=== PATIENT | male | born 1975 | race Caucasian/White ===

== ENCOUNTER 2020-02-19 15:35 | Inpatient (IN) | payer OTHER ==
[~2020-02-19] VITALS: Ht 185.4 cm; Wt 84.1 kg
[2020-02-19] MEDS: FAMOTIDINE 20 MG TAB PO SCH (00:30)
[2020-02-19] MEDS ORDERED: MORPHINE SULFATE 4 MG/ML SYR/VIAL IV ONE (18:00)
[2020-02-19] MEDS ORDERED: ONDANSETRON HCL 4 MG/2 ML VIAL IV ONE (18:00)
[2020-02-19 18:40] LABS: Urine WBC None Seen /hpf (0 - 3)
[2020-02-19 18:49] LABS: Basophils # (auto) 0 10 ^3/uL (0-0.2); Eosinophils # (auto) 0.1 10 ^3/uL (0-0.8); Monocytes # (auto) 0.9 10 ^3/uL (0-1.3); Neutrophils # (auto) 6.5 10 ^3/uL (1.6-8.6)
[2020-02-19 18:53] LABS: Basophils % (auto) 0.3 % (0.0-2.0); Eosinophils % (auto) 0.7 % (0.0-7.0); Hematocrit 34.8 % (41.0-53.0); Hemoglobin 10.7 g/dL (13.5-17.5); Lymphocytes # (auto) 1.5 10 ^3/uL (0.4-5.4); Mean Corpuscular Hemoglobin 21.7 pg (28.0-32.0); Mean Corpuscular Hgb Conc. 30.7 g/dL (32.0-36.0); Mean Corpuscular Volume 70.7 fL (80.0-100.0); Monocytes % (auto) 10.2 % (0.0-12.0); Neutrophils % (auto) 71.8 % (37.0-80.0); Platelet Count (auto) 319 10^3/uL (140-450); Red Blood Cells 4.92 10^6/uL (4.5-5.90)
[2020-02-19 18:55] LABS: Red Cell Distribution Width 20.5 % (11.8-14.3); Urine Bacteria NONE SEEN /hpf (None Seen); Urine Blood Negative /uL (Negative); Urine Specific Gravity 1.003 (1.001-1.035)
[2020-02-19 19:13] LABS: Albumin 4.2 g/dL (3.4-5.0); Calcium 8.7 mg/dL (8.5-10.1); Potassium 3.9 mmol/L (3.5-5.1)
[2020-02-19 19:17] LABS: BUN/Creatinine Ratio 11.9; Bilirubin, Total 0.6 mg/dL (0.2-1.0); Total Protein 8.3 g/dL (6.4-8.2)
[2020-02-19 19:19] LABS: Alcohol, Urine < 3.0 mg/dL (0-10); Amphetamine Screen, Urine NEGATIVE (NEGATIVE); Barbiturate Scree,Urine NEGATIVE (NEGATIVE); Benzodiazephine Screen, Urine NEGATIVE (NEGATIVE); Cannabinoid Screen, Urine NEGATIVE (NEGATIVE); Cocaine Screen, Urine NEGATIVE (NEGATIVE); Opiate Scree,Urine NEGATIVE (NEGATIVE); Phencyclidine Screen, Urine NEGATIVE (NEGATIVE)
[2020-02-19] MEDS ORDERED: ONDANSETRON HCL 4 MG/2 ML VIAL IV PRN (21:30)
[2020-02-19] MEDS ORDERED: TEMAZEPAM 15 MG CAP PO PRN (21:30)
[2020-02-19] MEDS ORDERED: ACETAMINOPHEN 325 MG TAB PO PRN (21:30)
[2020-02-19] MEDS ORDERED: HYDROcodone-ACET 5/325MG TAB PO PRN (21:30)
[2020-02-20] VITALS (7 sets, daily range): BP systolic 117–139; BP diastolic 63–82
[2020-02-20] MEDS: MORPHINE SULFATE 4 MG/ML SYR/VIAL IV PRN ×2 (00:44→07:43)
[2020-02-20] MEDS: FAMOTIDINE 20 MG TAB PO SCH ×2 (09:37→21:41)
[2020-02-20] MEDS ORDERED: BACLOFEN 10 MG TAB PO ONE (10:30)
[2020-02-20] MEDS ORDERED: HYDROmorphone HCL 2 MG/ML VL IV ONE (10:30)
[2020-02-20] MEDS: BACLOFEN 10 MG TAB PO SCH ×2 (14:11→21:41)
[2020-02-20] MEDS: HYDROmorphone HCL 2 MG/ML VL IV PRN (16:40)
[2020-02-21] MEDS: HYDROmorphone HCL 2 MG/ML VL IV PRN ×3 (04:48→14:24)
[2020-02-21 05:08] VITALS: BP 129/76
[2020-02-21 05:32] LABS: Basophils # (auto) 0 10 ^3/uL (0-0.2); Eosinophils # (auto) 0.1 10 ^3/uL (0-0.8); Hemoglobin 10.6 g/dL (13.5-17.5); Lymphocytes # (auto) 1.1 10 ^3/uL (0.4-5.4); Mean Corpuscular Hgb Conc. 30.9 g/dL (32.0-36.0); Monocytes # (auto) 0.6 10 ^3/uL (0-1.3)
[2020-02-21 05:33] LABS: Basophils % (auto) 0.3 % (0.0-2.0); Eosinophils % (auto) 1.5 % (0.0-7.0); Hematocrit 34.3 % (41.0-53.0); Lymphocytes % (auto) 17.7 % (10.0-50.0); Mean Corpuscular Volume 71.1 fL (80.0-100.0); Monocytes % (auto) 9.7 % (0.0-12.0); Neutrophils # (auto) 4.4 10 ^3/uL (1.6-8.6); Neutrophils % (auto) 70.8 % (37.0-80.0); Platelet Count (auto) 321 10^3/uL (140-450); Red Blood Cells 4.82 10^6/uL (4.5-5.90); White Blood Cell 6.2 10^3/uL (4.4-10.8)
[2020-02-21 05:44] LABS: Red Cell Distribution Width 20.3 % (11.8-14.3)
[2020-02-21] MEDS: BACLOFEN 10 MG TAB PO SCH ×2 (06:05→14:23)
[2020-02-21 09:00] VITALS: BP 119/69
[2020-02-21] MEDS: FAMOTIDINE 20 MG TAB PO SCH (09:57)
[2020-02-21 13:00] VITALS: BP 132/83
[2020-02-21 13:14] VITALS: BP 119/69
== END 2020-02-21 15:55 | disposition home or self-care (01) | DRG 536 ==
LOC: ER 15:35 → OVERFLOW 15:36 → CENTRAL 23:45
PROVIDERS: ADMIT Nurse Practitioner; ATTEND Internal Medicine
DX: S32.302A Unspecified fracture of left ilium, initial encounter for closed fracture (principal); W17.89XA Other fall from one level to another, initial encounter; M51.37 Other intervertebral disc degeneration, lumbosacral region; M16.12 Unilateral primary osteoarthritis, left hip; G89.29 Other chronic pain; D50.9 Iron deficiency anemia, unspecified; Y93.89 Activity, other specified; Y92.69 Other specified industrial and construction area as the place of occurrence of the external cause; Y99.8 Other external cause status
CPT/HCPCS: 36415; 73700; 80053; 80307; 81001; 85025; 96374; 96375; 97116; 97163; G0378; J2405